=== PATIENT | male | born 1940 | race Caucasian/White ===

== ENCOUNTER 2018-03-18 05:28 | Inpatient (IN) | payer BC, OTHER ==
[2018-03-17 13:59] VITALS: BMI 36.8
[~2018-03-18 05:28] MED LIST: BACITRACIN 50,000 UNITS VIAL TP ONE; GENTAMICIN SO4 80 MG/2 ML VIAL IVPB ONE; HYDROGEN PEROXIDE 473 ML PO ONE
[2018-03-18] MEDS ORDERED: LIDOCAINE 1%/EPI 1:100000 (20 ML MULTI DOSE VIAL) ONE (07:50)
[2018-03-18] MEDS ORDERED: BUPIVACAINE HCL/PF 0.5% (5MG/ML) 10 ML VIAL ONE (07:51)
[2018-03-18] MEDS ORDERED: DEXAMETHASONE SOD PHOSPHATE 4 MG/1 ML VIAL IVPUSH PRN (08:00)
[2018-03-18] MEDS ORDERED: ONDANSETRON 4 MG/2 ML VIAL IVPUSH PRN ×2 (08:00→12:22)
[2018-03-18] MEDS ORDERED: PROMETHAZINE HCL 25 MG/1 ML VIAL IVPB PRN (08:00)
[2018-03-18] MEDS ORDERED: PROPOFOL 20 ML ONE ×2 (08:02)
--- NOTE | 2018-03-18 08:02 | HP ---
History & Physical Update - History History: No Change - Physical Physical: No Change - Assessment Assessment: No Change - Plan Plan: No Change (Full H&P in chart from 03/11/[address] Santiago)
[2018-03-18] MEDS ORDERED: MIDAZOLAM HCL 2 MG/2 ML SINGLE DOSE VIAL ONE (08:03)
[2018-03-18] MEDS ORDERED: ROCURONIUM BROMIDE 50 MG/5 ML VIAL ONE ×2 (08:03→09:45)
[2018-03-18] MEDS ORDERED: LIDOCAINE HCL/PF 2% SDV 5ML VIAL ONE (08:04)
[2018-03-18] MEDS ORDERED: SODIUM CHLORIDE 0.9% P/F 10 ML VIAL IJ ONE ×2 (08:35→08:37)
[2018-03-18] MEDS ORDERED: ceFAZolin SODIUM 1 GM VIAL ONE (08:35)
[2018-03-18] MEDS ORDERED: VANCOMYCIN 1,000 MG VIAL (RESTRICTED TO ID ONLY) ONE ×2 (08:37→09:00)
[2018-03-18] MEDS ORDERED: ceFAZolin SODIUM 1 GM VIAL IVPB ONE (08:37)
[2018-03-18] MEDS ORDERED: ONDANSETRON 4 MG/2 ML VIAL ONE (08:39)
[2018-03-18] MEDS ORDERED: DEXAMETHASONE SOD PHOSPHATE 4 MG/1 ML VIAL ONE (08:39)
[2018-03-18] MEDS ORDERED: VANCOMYCIN 1,000 MG VIAL (RESTRICTED TO ID ONLY) IVPB ONE ×2 (08:39→11:26)
[2018-03-18] MEDS ORDERED: LIDOCAINE 1%/EPI 1:100000 (50 ML MULTI DOSE VIAL) NR ONE (08:53)
[2018-03-18] MEDS ORDERED: THROMBIN (BOVINE) 5,000 UNIT VIAL TP ONE (09:15)
[2018-03-18] MEDS ORDERED: GELATIN, ABSORBABLE 12-7MM EACH SPONGE TP ONE (09:15)
[2018-03-18] MEDS ORDERED: GLYCOPYRROLATE 0.2 MG/1 ML VIAL ONE ×2 (09:18→11:31)
[2018-03-18] MEDS ORDERED: BUPIVACAINE LIPOSOME/PF (EXPAREL) 266 MG/20 ML VIAL NR ONE ×2 (10:00→11:38)
[2018-03-18] MEDS ORDERED: HYDROGEN PEROXIDE 473 ML PO ONE (10:15)
[2018-03-18] MEDS ORDERED: BUPIVACAINE HCL/PF 0.25% (2.5MG/ML) 10 ML VIAL ONE (10:18)
[2018-03-18] MEDS ORDERED: BACITRACIN 50,000 UNITS VIAL TP ONE (11:26)
[2018-03-18] MEDS ORDERED: NEOSTIGMINE METHYLSULFATE 0.5 MG/1 ML - 10 ML MDV ONE (11:31)
[2018-03-18] MEDS ORDERED: BUPIVACAINE HCL/PF 0.25% (2.5MG/ML) 10 ML VIAL IJ ONE (11:38)
[2018-03-18] MEDS ORDERED: diphenhydrAMINE HCL 25 MG CAPSULE (FP) PO PRN (12:22)
[2018-03-18] MEDS ORDERED: oxyCODONE HCL 5 MG TABLET PO PRN ×2 (12:22)
[2018-03-18] MEDS ORDERED: morphine CARPU-JECT 4 MG/1 ML DISP.SYRIN IVPUSH PRN (12:22)
[2018-03-18] MEDS ORDERED: HYDROmorphone *PCA* 10MG/50ML DISP.SYRIN PCA ONE (12:24)
[2018-03-18] MEDS: HYDROmorphone *PCA* 10MG/50ML DISP.SYRIN PCA SCH (12:25)
--- NOTE | 2018-03-18 13:27 | OP ---
Operative Note - Note: Operative Date: 03/18/18 Pre-Operative Diagnosis: L 4/5 disc herniation, stenosis and instability Operation: L4-5 laminectomies with interbody cage and posterior lateral fusion using pedicle screws. Surgeon: Trino Aguila Records Clerk: Javid Chew Anesthesiologist/SPECIAL EDUCATION TEACHER: Doron Null Anesthesia: General Estimated Blood Loss (mls): 300 Fluid Volume Replaced (mls): 2,100 Operative Report Dictated: Yes
--- NOTE | 2018-03-18 13:41 | SURG ---
Surgery Ux Interaction Designer Note Ux Interaction Designer: Javid Chew PA-C Date of Service: 03/18/18 Diagnosis: L 4/5 disc herniation, stenosis and instability Procedure: L4-5 laminectomies with interbody cage and posterior lateral fusion using pedicle screws. I was present for the entirety of the operative procedure. For further detail, please refer to operative report. Visit type - Case Type Case Type: Scheduled - Emergency Emergency Visit: No - New patient This patient is new to me today: Yes Date on this admission: 03/18/18
--- NOTE | 2018-03-18 15:32 | HP ---
Admitting History and Physical - Admission Chief Complaint: 77 y.o M underwent today L4-L5 laminectomies, with intervertebral cage and lateral fusion under general unesthesia. Admitted to for post-op management. History of Present Illness: HTN HLD CVD. History of CVA. DM type 2 Polyneuropathy L4-L5 disc herniation, stenosis and spondilolisthesis and instability. Asthma. Chronic cough. Renal cysts History Source: Patient, Medical Record - Past Medical History DIRECTOR OF PAYROLL: Yes: CVA, Peripheral Neuropathy. No: Seizure Cardiovascular: Yes: HTN, Hyperlipdemia. No: AFIB, Aortic Insufficiency, Aortic Stenosis, CHF, [place], Pulmonary Hypertension Pulmonary: Yes: Asthma. No: O2 Dependent Gastrointestinal: Yes: Constipation Hepatobiliary: No: Cholelithiasis, Cholecystitis, Choledocholithiasis Renal/: Yes: BPH, Other (cyst) Heme/Onc: No: Anemia, B12 Deficiency, Bleeding Disorder, Cancer, Current Chemotherapy, Current Radiation Therapy, Hemochromatosis, Hypercoaguable State, Myeloproliferative Synd, Sickle Cell Disease, Sickle Cell Trait, Thrombocytopenia, Other Infectious Disease: No: AIDS, C-Diff, Herpes Zoster, HIV, MRSA, STD's, Tuberculosis, VREF, Other Psych: No: Addictions, Anxiety, Bipolar, Depression, Panic, Psychosis, Schizophrenia, Other Musculoskeletal: Yes: Chronic low back pain. No: Bursitis, Hemiparesis, Hemiplegia, Osteoarthritis, Paraplegia, Other Endocrine: Yes: Diabetes Mellitus - Smoking History Smoking history: Former smoker Have you smoked in the past 12 months: No If you are a former smoker, when did you quit?: 30YRS AGO - Alcohol/Substance Use Hx Alcohol Use: No Home Medications - Allergies Allergies/Adverse Reactions: Allergies Allergy/AdvReac Type Severity Reaction Status Date / Time No Known Drug Allergies Allergy Verified 03/18/18 06:39 SEASONAL Allergy Mild Cough Uncoded 03/18/18 06:39 - Home Medications Home Medications: Ambulatory Orders Ascorbic Acid [Vitamin C] 1,000 mg PO DAILY 08/10/12 Dutasteride/Tamsulosin HCl [Vilma 0.5-0.4 mg Capsule] 1 each PO HS 08/10/12 Gabapentin [Neurontin -] 300 mg PO BID 08/10/12 Multivit-Min/FA/Lycopen/Lutein [Centrum Silver Ultra Men's Tab] 1 tab PO DAILY 08/10/12 Simvastatin [Zocor] 80 mg PO DAILY 08/10/12 Aspirin [Aspirin EC] 325 mg PO DAILY 08/11/12 Wai/D3/Mag11/Zinc/Oxygen Tank Filler/Emir/Bor [Caltrate 600+D Plus Tablet] 1 each PO DAILY 03/23 Nebivolol [Bystolic -] 5 mg PO HS 03/17/18 Olmesartan Medoxomil 40 mg PO DAILY 03/17/18 Family Disease History - Family Disease History Family History: Unable to Obtain Review of Systems - Review of Systems Constitutional: denies: Chills, Diaphoresis Eyes: denies: Blind Spots, Blurred Vision HENT: denies: Difficult Swallowing, Ear Discharge Neck: denies: Decreased ROM, Lumps Cardiovascular: denies: Chest Pain, Palpitations, Shortness of Breath Respiratory: denies: Cough, Exercise Intolerance Gastrointestinal: denies: Abdominal Pain, Bloating Genitourinary: denies: Burning, Discharge Musculoskeletal: reports: Back Pain. denies: Muscle Pain, Muscle Cramps Integumentary: reports: No Symptoms Neurological: reports: No Symptoms Endocrine: reports: No Symptoms Hematology/Lymphatic: reports: No Symptoms Psychiatric: reports: No Symptoms Physical Examination Vital Signs: Vital Signs Temperature 98.7 F 03/18/18 12:12 Pulse Rate 62 03/18/18 13:40 Respiratory Rate 16 03/18/18 13:40 Blood Pressure 132/51 L 03/18/18 13:40 O2 Sat by Pulse Oximetry (%) 99 03/18/18 13:40 Constitutional: Yes: Mild Distress (pain controlled with IV TUCKPOINTER CLEANER CAULKER) Eyes: Yes: Conjunctiva Clear, EOM Intact HENT: Yes: Atraumatic, Normocephalic. No: Drooling Neck: Yes: Supple, Trachea Midline Cardiovascular: Yes: Regular Rate and Rhythm. No: Bradycardia, Tachycardia Respiratory: Yes: Regular, CTA Bilaterally Gastrointestinal: Yes: Soft, Abdomen, Obese. No: Ascites, Distention ...Rectal Exam: Yes: Deferred Renal/: Yes: Dhillon Present Musculoskeletal: Yes: WNL Extremities: No: Amputation, Calf Tenderness, Cold, Cyanosis Edema: No Peripheral Pulses WNL: No Integumentary: Yes: WNL Neurological: Yes: Alert, Oriented, Cran Nerves II-XII Intact. No: Aphasia, Asterixis, Dysarthria, Facial Droop, Lethargy, Loss of Sensation, Seizure, Tingling, Tremors, Unresponsive Psychiatric: Yes: WNL Labs: Laboratory Results - last 24 hr 03/18/18 03/18/18 06:20 07:20 Blood Type O NEGATIVE O NEGATIVE Antibody Screen Negative Problem List - Problems (1) Back pain at L4-L5 level Assessment/Plan: Continue Dilaudid TUCKPOINTER CLEANER CAULKER, Surgical post-op management Code(s): M54.5 - LOW BACK PAIN (2) HTN (hypertension) Assessment/Plan: Follow BP and re-start BP meds when BP stable. Would keep SBP< 140 mm. Hg. Code(s): I10 - ESSENTIAL (PRIMARY) HYPERTENSION Qualifiers: Hypertension type: essential hypertension Qualified Code(s): I10 - Essential (primary) hypertension (3) CVD (cardiovascular disease) Assessment/Plan: Hold ASA , Zocor to restart. Code(s): I25.10 - ATHSCL HEART DISEASE OF [place] CORONARY ARTERY W/O ANG PCTRS (4) Asthma Assessment/Plan: Duonebs TID Code(s): J45.909 - UNSPECIFIED ASTHMA, UNCOMPLICATED Qualifiers: Asthma severity: mild Asthma persistence: intermittent
[2018-03-18] MEDS ORDERED: ALBUTEROL SO4 2.5/IPRATROPIUM 0.5 INH SOL 3 ML VIAL.NEB. NEB PRN (15:43)
[2018-03-18] MEDS: DOCUSATE SODIUM 100 MG CAPSULE (FP) PO SCH ×2 (17:49→23:06)
[2018-03-18] MEDS: HEPARIN NA (PORCINE) 5,000 UNITS/ML 1ML VIAL SQ SCH ×2 (17:50→20:11)
[2018-03-18] MEDS: LACTATED RINGERS SOLUTION 1,000 ML/1,000 ML INFUS.BAG IV SCH (17:51)
[2018-03-18] MEDS: LACTATED RINGERS SOLUTION 1,000 ML IV SCH ×2 (17:51→23:05)
[2018-03-18] MEDS: CEFAZOLIN 1 GM/D5W 1 GM/50 ML BAG IVPB SCH (20:03)
[2018-03-18] MEDS: GABAPENTIN 100 MG CAPSULE (FP) PO SCH (23:06)
[2018-03-18] MEDS: ATORVASTATIN CA 40 MG TABLET (FP) PO SCH (23:06)
[2018-03-18] MEDS: POLYETHYLENE GLYCOL 3350 119 GM BTL PO SCH (23:06)
[2018-03-18] MEDS: DUTASTERIDE 0.5 MG CAP (FP) PO SCH (23:11)
[2018-03-18] MEDS: NEBIVOLOL 5 MG TABLET (FP) PO SCH (23:26)
[2018-03-19] MEDS: CEFAZOLIN 1 GM/D5W 1 GM/50 ML BAG IVPB SCH ×2 (02:05→10:17)
[2018-03-19] MEDS: DOCUSATE SODIUM 100 MG CAPSULE (FP) PO SCH ×3 (06:01→21:14)
[2018-03-19] MEDS: HEPARIN NA (PORCINE) 5,000 UNITS/ML 1ML VIAL SQ SCH ×3 (06:02→21:14)
[2018-03-19 07:33] LABS: HEMATOCRIT 31.5 % (35.4-49); MEAN CELL VOLUME 85.7 fl (80-96); MEAN PLT VOLUME 8.6 fl (7.5-11.1); PLATELET COUNT 167 K/MM3 (134-434); RBC 3.68 M/mm3 (4.00-5.60); RDW 14.1 % (11.9-15.9); WHITE BLOOD COUNT 9.5 K/mm3 (4.0-10.0)
[2018-03-19 08:17] LABS: ANION GAP 6 MMOL/L (8-16); BLOOD UREA NITROGEN 21 mg/dL (7-18); CHLORIDE 107 mmol/L (98-107); CO2 27 mmol/L (21-32); CREATININE 0.9 mg/dL (0.55-1.3); GLUCOSE,RANDOM 114 mg/dL (74-106); POTASSIUM 4.3 mmol/L (3.5-5.1); SODIUM 140 mmol/L (136-145)
--- NOTE | 2018-03-19 08:29 | PN ---
Progress Note (short form) - Note Progress Note: POD #1 Alert. Sitting up in bed. About to begin his breakfast. Doing well. C/o mild incisional tenderness. Has a dilaudid SPACE ENGINEER (barely using it). Hasn't been OOB yet. Denies n/v/f/c, CP, palpiations, SOB, numbness/tingling or weakness to his LE. Last Vital Signs Temp Pulse Resp BP Pulse Ox 97.9 F 53 L 18 135/61 95 03/19/18 06:00 03/19/18 06:00 03/19/18 06:00 18 06:00 03/18/18 21:00 CBC, BMP 03/19/18 06:00 03/19/18 06:00 OUTPUT 03/18/18 03/18/18 03/19/18 19:07 22:39 06:00 СВЕТЛАНА 5 120 120 Desai 900 600 Gen: alert. nad Back: Lumbar dressing with saturated blood(old). Dressing [place], wound edges approximated well with liberty & dermabond. СВЕТЛАНА drain on bulb suction ( serosanguinous) Neuro: GMNVI bilat Problem List - Problems (1) Back pain at L4-L5 level Assessment/Plan: POD #1 s/p L4-5 laminectomies with interbody cage and posterior lateral fusion using pedicle screws. SPACE ENGINEER dc'd by Barrie PO Pain management ordered OOB with PT Once OOB can dc desai and begin trial of void Dressing changed on round Cont to monitor and record СВЕТЛАНА output ABD binder ordered Medical management Incentive spirometer Above plan discussed with Dr. Aguila and agrees Code(s): M54.5 - LOW BACK PAIN (2) HTN (hypertension) Code(s): I10 - ESSENTIAL (PRIMARY) HYPERTENSION Qualifiers: Hypertension type: essential hypertension Qualified Code(s): I10 - Essential (primary) hypertension
--- NOTE | 2018-03-19 08:52 | PN ---
Progress Note (short form) - Note Progress Note: Post op day#1.S/P L4-L5 Decompression with fusion and interbody cage placement under GA uneventful.Patient stable and c/o pain score of 3-4/10 on Dilaudid TUB RIDER but is not using it as much.Will Dc TUB RIDER and put patient on po pain medication.No any anesthesia related problem.Patient DC from the anesthesia care.
--- NOTE | 2018-03-19 09:09 | PN ---
Progress Note, Physician Chief Complaint: DAY 1 post op Pain is well controlled. History of Present Illness: HTN HLD CVD. History of CVA. DM type 2 Polyneuropathy L4-L5 disc herniation, stenosis and spondilolisthesis and instability. Asthma. Chronic cough. Renal cysts - Current Medication List Current Medications: Active Medications Albuterol/Ipratropium (Duoneb -) 1 amp NEB Q6H PRN PRN Reason: SHORTNESS OF BREATH Aspirin (Ecotrin -) 325 mg PO DAILY [facility] Atorvastatin Calcium (Lipitor -) 40 mg PO [facility] Last Admin: 03/18/18 23:06 Dose: 40 mg Calcium Carbonate/Cholecalciferol (Os-Wai 500+D -) 1 tab PO DAILY [facility] Dexamethasone Sodium Phosphate (Decadron Injection -) 4 mg IVPUSH ONCE PRN PRN Reason: NAUSEA AND/OR VOMITING Diphenhydramine HCl (Benadryl Injection -) 12.5 mg IVPUSH ONCE PRN PRN Reason: FOR ITCHING Diphenhydramine HCl (Benadryl -) 25 mg PO Q6H PRN PRN Reason: FOR ITCHING Docusate Sodium (Colace -) 100 mg PO TID [facility] Last Admin: 03/19/18 06:01 Dose: 100 mg Dutasteride (Avodart -) 0.5 mg PO [facility] Last Admin: 03/18/18 23:11 Dose: 0.5 mg Fentanyl (Sublimaze Injection -) 50 mcg IVPUSH [id number] PRN PRN Reason: PAIN-PACU ORDER X 4 DOSES ONLY Ferrous Sulfate (Feosol -) 325 mg PO DAILY [facility] Folic Acid (Folic Acid -) 1 mg PO DAILY [facility] Gabapentin (Neurontin -) 300 mg PO BID [facility] Last Admin: 03/18/18 23:06 Dose: 300 mg Heparin Sodium (Porcine) (Heparin -) 5,000 unit SQ TID [facility] Last Admin: 03/19/18 06:02 Dose: 5,000 unit Lactated Ringer's (Lactated Ringers Solution) 1,000 mls @ 125 mls/hr IV ASDIR [facility] Last Admin: 03/18/18 23:05 Dose: 125 mls/hr Cefazolin Sodium (Ancef 1 Gm Premixed Ivpb -) 1 gm in 50 mls @ 100 mls/hr IVPB Q8H-IV [facility] Stop: 03/19/18 17:59 Last Admin: 03/19/18 02:05 Dose: 100 mls/hr Lactated Ringer's (Lactated Ringers Solution) 1,000 ml in 1,000 mls @ 125 mls/ hr IV ASDIR [facility] Last Admin: 03/18/18 17:51 Dose: Not Given Morphine Sulfate (Morphine Injection -) 4 mg IVPUSH Q4H PRN PRN Reason: PAIN LEVEL 7 - 10 Nebivolol (Bystolic -) 5 mg PO HS [facility] Last Admin: 03/18/18 23:26 Dose: 5 mg Ondansetron HCl (Zofran Injection) 4 mg IVPUSH Q4H PRN PRN Reason: NAUSEA AND/OR VOMITING Ondansetron HCl (Zofran Injection) 4 mg IVPUSH Q6H PRN PRN Reason: NAUSEA Oxycodone HCl (Roxicodone -) 5 mg PO Q4H PRN PRN Reason: PAIN LEVEL 1-5 Oxycodone HCl (Roxicodone -) 10 mg PO Q4H PRN PRN Reason: PAIN LEVEL 6-10 Polyethylene Glycol (Miralax (For Daily Use) -) 17 gm PO BID [facility] Last Admin: 03/18/18 23:06 Dose: 17 gm Promethazine HCl (Phenergan Injection -) 12.5 mg IVPB Q6H PRN PRN Reason: NAUSEA AND/OR VOMITING Tamsulosin HCl (Flomax -) 0.4 mg PO DAILY@0830 [facility] - Objective Vital Signs: Vital Signs Temperature 97.9 F 03/19/18 06:00 Pulse Rate 53 L 03/19/18 06:00 Respiratory Rate 18 03/19/18 06:00 Blood Pressure 135/61 03/19/18 06:00 O2 Sat by Pulse Oximetry (%) 95 03/18/18 21:00 Constitutional: Yes: Calm, Mild Distress Eyes: Yes: Conjunctiva Clear, EOM Intact HENT: Yes: Atraumatic, Normocephalic. No: Drooling, Epistaxis Neck: Yes: Supple, Trachea Midline Cardiovascular: Yes: Regular Rate and Rhythm, S1, S2. No: Bradycardia, Tachycardia Respiratory: Yes: Regular, CTA Bilaterally Gastrointestinal: Yes: Normal Bowel Sounds, Soft, Abdomen, Obese ...Rectal Exam: Yes: Deferred Genitourinary: Yes: Dhillon Present. No: Anuria Breast(s): Yes: WNL Musculoskeletal: Yes: WNL Extremities: No: Amputation Edema: Yes Edema: LLE: Trace, RLE: Trace Peripheral Pulses WNL: No Wound/Incision: Yes: Other (drain post op) ...Motor Strength: WNL Psychiatric: Yes: WNL Labs: CBC, BMP 03/19/18 06:00 03/19/18 06:00 Problem List - Problems (1) Back pain at L4-L5 level Assessment/Plan: Pain management D/c Drain and ABX as per surgery Surgical post-op management Code(s): M54.5 - LOW BACK PAIN (2) HTN (hypertension) Assessment/Plan: Follow BP and re-start BP meds when BP stable. Would keep SBP< 140 mm. Hg. Code(s): I10 - ESSENTIAL (PRIMARY) HYPERTENSION Qualifiers: Hypertension type: essential hypertension Qualified Code(s): I10 - Essential (primary) hypertension (3) CVD (cardiovascular disease) Assessment/Plan: Hold ASA , Zocor to restart. Code(s): I25.10 - ATHSCL HEART DISEASE OF [place] CORONARY ARTERY W/O ANG PCTRS (4) Asthma Assessment/Plan: Duonebs TID Code(s): J45.909 - UNSPECIFIED ASTHMA, UNCOMPLICATED Qualifiers: Asthma severity: mild Asthma persistence: intermittent
[2018-03-19] MEDS ORDERED: VALSARTAN 160 MG TABLET (UD) PO SCH (10:00)
[2018-03-19] MEDS ORDERED: PT OWN MED DRAWER 7, Y5N ONE ×2 (10:04→20:40)
[2018-03-19] MEDS: ASPIRIN 325 MG ENTERIC COATED TABLET (FP) PO SCH (10:10)
[2018-03-19] MEDS: FOLIC ACID 1 MG TABLET (FP) PO SCH (10:10)
[2018-03-19] MEDS: TAMSULOSIN HCL 0.4 MG CAP PO SCH (10:10)
[2018-03-19] MEDS: FERROUS SO4 325 MG TABLET (FP) PO SCH (10:10)
[2018-03-19] MEDS: POLYETHYLENE GLYCOL 3350 119 GM BTL PO SCH ×2 (10:11→21:19)
[2018-03-19] MEDS: CALCIUM 500MG/VIT-D 200 UNITS COMBO TABLET (FP) PO SCH (10:11)
[2018-03-19] MEDS: GABAPENTIN 100 MG CAPSULE (FP) PO SCH ×2 (10:11→21:10)
[2018-03-19] MEDS: LACTATED RINGERS SOLUTION 1,000 ML/1,000 ML INFUS.BAG IV SCH (13:42)
[2018-03-19] MEDS: LACTATED RINGERS SOLUTION 1,000 ML IV SCH (13:42)
[2018-03-19] MEDS: ATORVASTATIN CA 40 MG TABLET (FP) PO SCH (21:13)
[2018-03-19] MEDS: NEBIVOLOL 5 MG TABLET (FP) PO SCH (21:13)
[2018-03-19] MEDS: DUTASTERIDE 0.5 MG CAP (FP) PO SCH (21:14)
[2018-03-20] MEDS: DOCUSATE SODIUM 100 MG CAPSULE (FP) PO SCH ×3 (05:55→22:36)
[2018-03-20] MEDS: HEPARIN NA (PORCINE) 5,000 UNITS/ML 1ML VIAL SQ SCH ×3 (05:55→22:29)
--- NOTE | 2018-03-20 09:13 | PN ---
Physical Exam: SUBJECTIVE: Patient seen and examined at the bedside. reports feeling "sore" but pain well controlled. sitting up and ambulating eager to go home Thursday OBJECTIVE: symphony coverage for Dr. Santiago who returns on 03/22/18 POD#2 Patient denies any pain, states pain is well controlled passing gas, no bm yet urology consulted for retention, has desai with clear sharri urine low grade temps overnight Vital Signs Period Temp Pulse Resp BP Sys/Constantino Pulse Ox Last 24 Hr 98.5 F-100.9 F 57-84 19-20 115-147/53-67 95 GENERAL: The patient is awake, alert, and fully oriented, in no acute distress. HEAD: Normal with no signs of trauma. EYES: PERRL, extraocular movements intact, sclera anicteric, conjunctiva clear. No ptosis. ENT: Ears normal, nares patent, oropharynx clear without exudates, moist mucous membranes. NECK: Trachea midline, full range of motion, supple. LUNGS: Breath sounds equal, clear to auscultation bilaterally HEART: Regular rate and rhythm ABDOMEN: Soft, nontender, nondistended, normoactive bowel sounds EXTREMITIES: no edema. NEUROLOGICAL: Normal speech, gait not observed. PSYCH: Normal mood, normal affect. SKIN: Warm, dry, normal turgor, no rashes or lesions noted Laboratory Results - last 24 hr 03/19/18 03/19/18 11:36 16:34 POC Glucometer 120 109 Active Medications Generic Name Dose Route Start Last Admin Trade Name Freq PRN Reason Stop Dose Admin Albuterol/Ipratropium 1 amp 03/18/18 15:43 Duoneb - NEB Q6H PRN SHORTNESS OF BREATH Aspirin 325 mg 03/19/18 10:00 03/19/18 10:10 Ecotrin - PO 325 mg DAILY CARL Administration Atorvastatin Calcium 40 mg 03/18/18 22:00 03/19/18 21:13 Lipitor - PO 40 mg HS CARL Administration Calcium Carbonate/Cholecalciferol 1 tab 03/19/18 10:00 03/19/18 10:11 Os-Wai 500+D - PO 1 tab DAILY [facility] Administration Dexamethasone Sodium Phosphate 4 mg 03/18/18 08:00 Decadron Injection - IVPUSH ONCE PRN NAUSEA AND/OR VOMITING Diphenhydramine HCl 12.5 mg 03/18/18 08:00 Benadryl Injection - IVPUSH ONCE PRN FOR ITCHING Diphenhydramine HCl 25 mg 03/18/18 12:22 Benadryl - PO Q6H PRN FOR ITCHING Docusate Sodium 100 mg 03/18/18 14:00 03/20/18 05:55 Colace - PO 100 mg TID CARL Administration Dutasteride 0.5 mg 03/18/18 22:00 03/19/18 21:14 Avodart - PO 0.5 mg HS [facility]L Administration Fentanyl 50 mcg 03/18/18 08:00 Sublimaze Injection - IVPUSH [id number] PRN PAIN-PACU ORDER X 4 DOSES ONLY Ferrous Sulfate 325 mg 03/19/18 10:00 03/19/18 10:10 Feosol - PO 325 mg DAILY [facility] Administration Folic Acid 1 mg 03/19/18 10:00 03/19/18 10:10 Folic Acid - PO 1 mg DAILY [facility] Administration Gabapentin 300 mg 03/18/18 22:00 03/19/18 21:10 Neurontin - PO 300 mg BID [facility] Administration Heparin Sodium (Porcine) 5,000 unit 03/19/18 06:00 03/20/18 05:55 Heparin - SQ 5,000 unit TID [facility] Administration Lactated Ringer's 1,000 mls @ 125 mls/hr 03/18/18 08:00 03/19/18 13:42 Lactated Ringers Solution IV Not Given ASDIR [facility] Lactated Ringer's 1,000 ml in 1,000 mls @ 125 mls/hr 03/18/18 12:30 03/19/18 13:42 Lactated Ringers Solution IV Not Given ASDIR [facility] Morphine Sulfate 4 mg 03/18/18 12:22 Morphine Injection - IVPUSH Q4H PRN PAIN LEVEL 7 - 10 Nebivolol 5 mg 03/18/18 22:00 03/19/18 21:13 Bystolic - PO 5 mg HS [facility]L Administration Ondansetron HCl 4 mg 03/18/18 08:00 Zofran Injection IVPUSH Q4H PRN NAUSEA AND/OR VOMITING Ondansetron HCl 4 mg 03/18/18 12:22 Zofran Injection IVPUSH Q6H PRN NAUSEA Oxycodone HCl 5 mg 03/18/18 12:22 Roxicodone - PO Q4H PRN PAIN LEVEL 1-5 Oxycodone HCl 10 mg 03/18/18 12:22 03/19/18 14:11 Roxicodone - PO 10 mg Q4H PRN Administration PAIN LEVEL 6-10 Polyethylene Glycol 17 gm 03/18/18 22:00 03/19/18 21:19 Miralax (For Daily Use) - PO 17 gm BID [facility] Administration Promethazine HCl 12.5 mg 03/18/18 08:00 Phenergan Injection - IVPB Q6H PRN NAUSEA AND/OR VOMITING Tamsulosin HCl 0.4 mg 03/19/18 08:30 03/19/18 10:10 Flomax - PO 0.4 mg DAILY@0830 [facility] Administration ASSESSMENT/PLAN: Patient is a 77 year old male with a significant past medical history of: HTN HLD CVD. History of CVA. DM type 2 Polyneuropathy L4-L5 disc herniation, stenosis and spondilolisthesis and instability. Asthma. Chronic cough. Renal cysts Back surgery: L4-L5 disc herniation, stenosis and spondilolisthesis and instability. Patient is POD#2 s/p L4-L5 laminectomies, with intervertebral cage and lateral fusion under general anaesthesia. TSLO bracelet with ambulation. Pain managed with oxycodone. On a bowel regimen Physical therapy as tolerated Card: Hypertension. stable. On Bystolic. HLD. on lipitor Endocrine: DM. type 2. BGMs. Novolog ss. diabetic diet. : Urine retention desai cathether for retention on flomax 0.4mg daily urology consult Neuro: CVA hx of cva Hold ASA 324mg per pcp note. On statin therapy Pulm: Asthma, stable On duonebs prn fen tolerating po monitor electrolytes diabetic diet prophy on heparin tid bowel regimen physical therapy full code Visit type - Emergency Visit Emergency Visit: Yes ED Registration Date: 03/18/18 Care time: The patient presented to the Emergency Department on the above date and was hospitalized for further evaluation of their emergent condition. - New Patient This patient is new to me today: Yes Date on this admission: 03/20/18 - Critical Care Critical Care patient: No - Discharge Referral Referred to [facility] No
[2018-03-20] MEDS: LACTATED RINGERS SOLUTION 1,000 ML IV SCH (10:38)
[2018-03-20] MEDS: ASPIRIN 325 MG ENTERIC COATED TABLET (FP) PO SCH (10:40)
[2018-03-20] MEDS: GABAPENTIN 100 MG CAPSULE (FP) PO SCH ×2 (10:40→22:28)
[2018-03-20] MEDS: FERROUS SO4 325 MG TABLET (FP) PO SCH (10:40)
[2018-03-20] MEDS: CALCIUM 500MG/VIT-D 200 UNITS COMBO TABLET (FP) PO SCH (10:40)
[2018-03-20] MEDS: FOLIC ACID 1 MG TABLET (FP) PO SCH (10:40)
[2018-03-20] MEDS: TAMSULOSIN HCL 0.4 MG CAP PO SCH (10:42)
[2018-03-20] MEDS: POLYETHYLENE GLYCOL 3350 119 GM BTL PO SCH ×2 (10:43→22:28)
[2018-03-20] MEDS: LACTATED RINGERS SOLUTION 1,000 ML/1,000 ML INFUS.BAG IV SCH (12:34)
[2018-03-20] MEDS: HYDROmorphone *PCA* 10MG/50ML DISP.SYRIN PCA SCH (12:35)
[2018-03-20] MEDS: INSULIN SLIDING SCALE (NOVOLOG) 1 VIAL SQ SCH ×2 (17:47→22:29)
[2018-03-20] MEDS ORDERED: INSULIN (NOVOLOG) ASPART 100 UNITS/ML 10ML VIAL ONE (18:10)
[2018-03-20] MEDS: ATORVASTATIN CA 40 MG TABLET (FP) PO SCH (22:28)
[2018-03-20] MEDS: NEBIVOLOL 5 MG TABLET (FP) PO SCH (22:30)
[2018-03-20] MEDS: DUTASTERIDE 0.5 MG CAP (FP) PO SCH (22:32)
[2018-03-21] MEDS: DOCUSATE SODIUM 100 MG CAPSULE (FP) PO SCH ×3 (06:13→21:15)
[2018-03-21] MEDS: HEPARIN NA (PORCINE) 5,000 UNITS/ML 1ML VIAL SQ SCH ×3 (06:13→21:16)
[2018-03-21] MEDS: INSULIN SLIDING SCALE (NOVOLOG) 1 VIAL SQ SCH ×4 (06:13→22:24)
--- NOTE | 2018-03-21 08:04 | PN ---
Physical Exam: SUBJECTIVE: Patient seen and examined at the bedside. denies pain, denies shortness of breath. verbalizes feeling constipated. OBJECTIVE: symphony coverage for Dr. Santiago who returns on 03/22/18 POD#3 passing gas, no bm yet urology consulted for retention, has desai with clear sharri urine. On Jayln at home. which is a combo pill of flomax and avodart. he is on both avodart and flomax here, but still cannot urinate. Vital Signs Period Temp Pulse Resp BP Sys/Constantino Pulse Ox Last 24 Hr 97.8 F-98.9 F 56-63 18-20 123-146/54-71 GENERAL: The patient is awake, alert, and fully oriented, in no acute distress. HEAD: Normal with no signs of trauma. EYES: PERRL, extraocular movements intact, sclera anicteric, conjunctiva clear. No ptosis. ENT: Ears normal, nares patent, oropharynx clear without exudates, moist mucous membranes. NECK: Trachea midline, full range of motion, supple. LUNGS: Breath sounds equal, clear to auscultation bilaterally HEART: Regular rate and rhythm ABDOMEN: Soft, nontender, nondistended, normoactive bowel sounds EXTREMITIES: no edema. NEUROLOGICAL: Normal speech, gait not observed. PSYCH: Normal mood, normal affect. SKIN: Warm, dry, normal turgor, no rashes or lesions noted Laboratory Results - last 24 hr 03/20/18 03/20/18 03/21/18 17:44 22:25 06:11 POC Glucometer 193 103 120 Active Medications Generic Name Dose Route Start Last Admin Trade Name Frehugo PRN Reason Stop Dose Admin Albuterol/Ipratropium 1 amp 03/18/18 15:43 Duoneb - NEB Q6H PRN SHORTNESS OF BREATH Aspirin 325 mg 03/19/18 10:00 03/20/18 10:40 Ecotrin - PO 325 mg DAILY CARL Administration Atorvastatin Calcium 40 mg 03/18/18 22:00 03/20/18 22:28 Lipitor - PO 40 mg HS CARL Administration Calcium Carbonate/Cholecalciferol 1 tab 03/19/18 10:00 03/20/18 10:40 Os-Wai 500+D - PO 1 tab DAILY [facility] Administration Dexamethasone Sodium Phosphate 4 mg 03/18/18 08:00 Decadron Injection - IVPUSH ONCE PRN NAUSEA AND/OR VOMITING Diphenhydramine HCl 12.5 mg 03/18/18 08:00 Benadryl Injection - IVPUSH ONCE PRN FOR ITCHING Diphenhydramine HCl 25 mg 03/18/18 12:22 Benadryl - PO Q6H PRN FOR ITCHING Docusate Sodium 100 mg 03/18/18 14:00 03/21/18 06:13 Colace - PO 100 mg TID [facility] Administration Dutasteride 0.5 mg 03/21/18 08:30 Avodart - PO DAILY@0830 [facility] Fentanyl 50 mcg 03/18/18 08:00 Sublimaze Injection - IVPUSH [id number] PRN PAIN-PACU ORDER X 4 DOSES ONLY Ferrous Sulfate 325 mg 03/19/18 10:00 03/20/18 10:40 Feosol - PO 325 mg DAILY [facility] Administration Folic Acid 1 mg 03/19/18 10:00 03/20/18 10:40 Folic Acid - PO 1 mg DAILY [facility] Administration Gabapentin 300 mg 03/18/18 22:00 03/20/18 22:28 Neurontin - PO 300 mg BID [facility] Administration Heparin Sodium (Porcine) 5,000 unit 03/19/18 06:00 03/21/18 06:13 Heparin - SQ 5,000 unit TID [facility] Administration Insulin Aspart 1 vial 03/20/18 16:30 03/21/18 06:13 Novolog Vial Sliding Scale - SQ Not Given ACHS [facility] Protocol Nebivolol 5 mg 03/18/18 22:00 03/20/18 22:30 Bystolic - PO 5 mg HS [facility] Administration Ondansetron HCl 4 mg 03/18/18 08:00 Zofran Injection IVPUSH Q4H PRN NAUSEA AND/OR VOMITING Ondansetron HCl 4 mg 03/18/18 12:22 Zofran Injection IVPUSH Q6H PRN NAUSEA Oxycodone HCl 5 mg 03/18/18 12:22 Roxicodone - PO Q4H PRN PAIN LEVEL 1-5 Oxycodone HCl 10 mg 03/18/18 12:22 03/19/18 14:11 Roxicodone - PO 10 mg Q4H PRN Administration PAIN LEVEL 6-10 Polyethylene Glycol 17 gm 03/18/18 22:00 03/20/18 22:28 Miralax (For Daily Use) - PO 17 gm BID [facility] Administration Promethazine HCl 12.5 mg 03/18/18 08:00 Phenergan Injection - IVPB Q6H PRN NAUSEA AND/OR VOMITING Tamsulosin HCl 0.4 mg 03/21/18 08:30 Flomax - PO DAILY@0830 [facility] ASSESSMENT/PLAN: Patient is a 77 year old male with a significant past medical history of: HTN HLD CVD. History of CVA. DM type 2 Polyneuropathy L4-L5 disc herniation, stenosis and spondilolisthesis and instability. Asthma. Chronic cough. Renal cysts Back surgery: L4-L5 disc herniation, stenosis and spondilolisthesis and instability. Patient is POD#3 s/p L4-L5 laminectomies, with intervertebral cage and lateral fusion under general anaesthesia. TSLO bracelet with ambulation. Pain managed with oxycodone. On a bowel regimen, but constipated. will add senna @ hs. pt refusing suppository. Physical therapy as tolerated monitor drain output incentive spirometer Card: Hypertension. stable. On Bystolic. HLD. on lipitor Endocrine: DM. type 2. BGMs. Novolog ss. diabetic diet. GI: Constipation, unspecified On bowel regimen colace tid. mirallax bid. will add senna refusing dulcolax suppository at this time, will add as prn : Urine retention urology consulted for retention, has desai with clear sharri urine. On Jayln at home. which is a combo pill of flomax and avodart. he is on both avodart and flomax here, but still cannot urinate on his own urology consult Neuro: CVA hx of cva Hold ASA 324mg per pcp note. On statin therapy Pulm: Asthma, stable On duonebs prn fen tolerating po monitor electrolytes diabetic diet prophy on heparin tid bowel regimen physical therapy full code Visit type - Emergency Visit Emergency Visit: Yes ED Registration Date: 03/18/18 Care time: The patient presented to the Emergency Department on the above date and was hospitalized for further evaluation of their emergent condition. - New Patient This patient is new to me today: No - Critical Care Critical Care patient: No - Discharge Referral Referred to [facility] Med P.C.: No
[2018-03-21] MEDS ORDERED: SENNOSIDES 8.6MG TABLET (FP) PO PRN (08:22)
[2018-03-21] MEDS ORDERED: BISACODYL 10 MG SUPP.RECT RC PRN (08:26)
[2018-03-21] MEDS ORDERED: PT OWN MED DRAWER 7, Y5N ONE ×2 (08:47→13:22)
[2018-03-21] MEDS: TAMSULOSIN HCL 0.4 MG CAP PO SCH (09:02)
[2018-03-21] MEDS: FOLIC ACID 1 MG TABLET (FP) PO SCH (09:03)
[2018-03-21] MEDS: CALCIUM 500MG/VIT-D 200 UNITS COMBO TABLET (FP) PO SCH (09:03)
[2018-03-21] MEDS: FERROUS SO4 325 MG TABLET (FP) PO SCH (09:03)
[2018-03-21] MEDS: GABAPENTIN 100 MG CAPSULE (FP) PO SCH ×2 (09:03→21:27)
[2018-03-21] MEDS: DUTASTERIDE 0.5 MG CAP (FP) PO SCH (09:03)
[2018-03-21] MEDS: POLYETHYLENE GLYCOL 3350 119 GM BTL PO SCH ×2 (09:04→21:26)
[2018-03-21 09:09] LABS: BASO % 0.4 % (0-2.0); EOS % 2.3 % (0-4.5); HEMATOCRIT 33.4 % (35.4-49); HEMOGLOBIN 11.7 GM/dL (11.7-16.9); LYMPH % 8.5 % (8-40); MCHC 35.1 g/dl (32.0-35.9); MEAN CELL VOLUME 85.3 fl (80-96); MEAN PLT VOLUME 8.5 fl (7.5-11.1); NEUT % 80.8 % (42.8-82.8); PLATELET COUNT 167 K/MM3 (134-434); RBC 3.92 M/mm3 (4.00-5.60); RDW 13.7 % (11.9-15.9); WHITE BLOOD COUNT 7.6 K/mm3 (4.0-10.0)
[2018-03-21 09:27] LABS: ALBUMIN 2.7 g/dl (3.4-5.0); ALK PHOS 58 U/L (45-117); ANION GAP 6 MMOL/L (8-16); BLOOD UREA NITROGEN 16 mg/dL (7-18); CHLORIDE 105 mmol/L (98-107); CO2 27 mmol/L (21-32); CREATININE 0.9 mg/dL (0.55-1.3); GLUCOSE,RANDOM 160 mg/dL (74-106); POTASSIUM 4.1 mmol/L (3.5-5.1); SGOT/AST 26 U/L (15-37); SGPT/ALT 20 U/L (13-61); SODIUM 138 mmol/L (136-145); TOT PROT 5.6 g/dl (6.4-8.2)
[2018-03-21] MEDS: NEBIVOLOL 5 MG TABLET (FP) PO SCH (21:14)
[2018-03-21] MEDS: ATORVASTATIN CA 40 MG TABLET (FP) PO SCH (21:16)
[2018-03-22] MEDS: HEPARIN NA (PORCINE) 5,000 UNITS/ML 1ML VIAL SQ SCH ×3 (05:45→21:50)
[2018-03-22] MEDS: DOCUSATE SODIUM 100 MG CAPSULE (FP) PO SCH ×3 (06:06→21:44)
[2018-03-22] MEDS: INSULIN SLIDING SCALE (NOVOLOG) 1 VIAL SQ SCH ×4 (06:07→21:50)
--- NOTE | 2018-03-22 08:14 | PN ---
Progress Note (short form) - Note Progress Note: POD #4 Alert. Doing well. Went into urinary retention (+ h/o BPH and on Jayln at home) . Urology/Rectschaffen consult appreciated. Continues to get oob and ambulate with rolling walker with physical therapy. Icisional pain managed well with medications as ordered. Denies n/v/f/c, CP, SOB, numbness/tingling to LE bilat. Last Vital Signs Temp Pulse Resp BP Pulse Ox 98.4 F 54 L 20 143/54 L 95 12/17/18 06:20 17/18 06:20 12/17/18 06:20 18 06:20 03/21/18 21:00 CBC, BMP 03/21/18 09:00 03/21/18 09:00 24 HOUR OUTPUT 12/16/18 16/18 03/21/18 03/22/18 06:00 17:35 22:50 06:00 СВЕТЛАНА 25 50 30 Desai 800 700 700 500 Gen: nad Back: liberty intact. no evidence of infection. drain dc'd on rounds LE: soft, nt bilat. strength 5/5 bilat with good dorsi/plantar flexion. : desai to gravity Problem List - Problems (1) Back pain at L4-L5 level Assessment/Plan: POD #4 s/p L4-5 laminectomies with interbody cage and posterior lateral fusion using pedicle screws. СВЕТЛАНА dc'd on rounds. Stop IV ABX Cont oob and ambulate with PT TLSO brace or ABD binder 23/24 hours a day Pain management PRN Trial of void as per Urology Cont Flomax & Proscar (BPH) Code(s): M54.5 - LOW BACK PAIN (2) HTN (hypertension) Code(s): I10 - ESSENTIAL (PRIMARY) HYPERTENSION Qualifiers: Hypertension type: essential hypertension Qualified Code(s): I10 - Essential (primary) hypertension
--- NOTE | 2018-03-22 08:17 | CON.GU ---
Consult Consult Specialty:: Referred by:: Dr. Santiago Reason for Consultation:: urinary retention - History of Present Illness Chief Complaint: urinary retention History of Present Illness: 77 year old male with a history of BPH who is on Vilma was unable to void after spinal surgery. He was experiencing RLE pain prior to the operation. He has a history of peripheral neuropathy - History Source History Provided By: Patient Limitations to Obtaining History: No Limitations - Past Medical History [employer]: Yes: CVA, Peripheral Neuropathy. No: Seizure Cardio/Vascular: Yes: HTN, Hyperlipdemia. No: AFIB, Aortic Insufficiency, Aortic Stenosis, CHF, [place], Pulmonary Hypertension Pulmonary: Yes: Asthma. No: O2 Dependent Gastrointestinal: Yes: Constipation Hepatobiliary: No: Cholelithiasis, Cholecystitis, Choledocholithiasis Renal/: Yes: BPH, Other (cyst) Infectious Disease: No: AIDS, C-Diff, Herpes Zoster, HIV, MRSA, STD's, Tuberculosis, VREF, Other Psych: No: Addictions, Anxiety, Bipolar, Depression, Panic, Psychosis, Schizophrenia, Other Musculoskeletal: Yes: Chronic low back pain. No: Bursitis, Hemiparesis, Hemiplegia, Osteoarthritis, Paraplegia, Other Endocrine: Yes: Diabetes Mellitus - Alcohol/Substance Use Hx Alcohol Use: No - Smoking History Smoking history: Former smoker Have you smoked in the past 12 months: No If you are a former smoker, when did you quit?: 30YRS AGO Home Medications - Allergies Allergies/Adverse Reactions: Allergies Allergy/AdvReac Type Severity Reaction Status Date / Time No Known Drug Allergies Allergy Verified 03/18/18 06:39 SEASONAL Allergy Mild Cough Uncoded 03/18/18 06:39 - Home Medications Home Medications: Ambulatory Orders Ascorbic Acid [Vitamin C] 1,000 mg PO DAILY 08/10/12 Dutasteride/Tamsulosin HCl [Vilma 0.5-0.4 mg Capsule] 1 each PO HS 08/10/12 Gabapentin [Neurontin -] 300 mg PO BID 08/10/12 Multivit-Min/FA/Lycopen/Lutein [Centrum Silver Ultra Men's Tab] 1 tab PO DAILY 08/10/12 Simvastatin [Zocor] 80 mg PO DAILY 08/10/12 Aspirin [Aspirin EC] 325 mg PO DAILY 08/11/12 Wai/D3/Mag11/Zinc/Land Developer/Emir/Bor [Caltrate 600+D Plus Tablet] 1 each PO DAILY 03/23 Nebivolol [Bystolic -] 5 mg PO HS 03/17/18 Olmesartan Medoxomil 40 mg PO DAILY 03/17/18 Review of Systems - Review of Systems Genitourinary: reports: Other (urinary retention) Physical Exam- Vital Signs: Vital Signs Temperature 98.4 F 03/22/18 06:20 Pulse Rate 54 L 03/22/18 06:20 Respiratory Rate 20 03/22/18 06:20 Blood Pressure 143/54 L 03/22/18 06:20 O2 Sat by Pulse Oximetry (%) 95 03/21/18 21:00 Constitutional: Yes: Well Nourished, No Distress, Calm Renal/: Yes: Dhillon Present. No: Bladder Distention, CVA Tenderness - Left, CVA Tenderness - Right, Hematuria, Incontinence Kidneys: No: Flank Pain Left, FLank Pain Right Labs: CBC, BMP 03/21/18 09:00 03/21/18 09:00 Problem List - Problems (1) Benign localized hyperplasia of prostate with urinary obstruction Assessment/Plan: repeat a trial of void today. continue flomax and proscar Code(s): N40.1 - BENIGN PROSTATIC HYPERPLASIA WITH LOWER URINARY TRACT SYMP; N13.8 - OTHER OBSTRUCTIVE AND REFLUX UROPATHY (2) Retention of urine Code(s): R33.9 - RETENTION OF URINE, UNSPECIFIED
--- NOTE | 2018-03-22 08:53 | PN ---
Progress Note, Physician Chief Complaint: СВЕТЛАНА removed , off abx Dhillon removed Discussed with Gu History of Present Illness: HTN HLD CVD. History of CVA. DM type 2 Polyneuropathy L4-L5 disc herniation, stenosis and spondilolisthesis and instability. Asthma. Chronic cough. Renal cysts - Current Medication List Current Medications: Active Medications Albuterol/Ipratropium (Duoneb -) 1 amp NEB Q6H PRN PRN Reason: SHORTNESS OF BREATH Aspirin (Ecotrin -) 325 mg PO DAILY [facility] Last Admin: 03/20/18 10:40 Dose: 325 mg Atorvastatin Calcium (Lipitor -) 40 mg PO HS [facility] Last Admin: 03/21/18 21:16 Dose: 40 mg Bisacodyl (Dulcolax Suppository -) 10 mg RC PRN PRN PRN Reason: CONSTIPATION Calcium Carbonate/Cholecalciferol (Os-Wai 500+D -) 1 tab PO DAILY [facility] Last Admin: 03/21/18 09:03 Dose: 1 tab Dexamethasone Sodium Phosphate (Decadron Injection -) 4 mg IVPUSH ONCE PRN PRN Reason: NAUSEA AND/OR VOMITING Diphenhydramine HCl (Benadryl Injection -) 12.5 mg IVPUSH ONCE PRN PRN Reason: FOR ITCHING Diphenhydramine HCl (Benadryl -) 25 mg PO Q6H PRN PRN Reason: FOR ITCHING Docusate Sodium (Colace -) 100 mg PO TID [facility] Last Admin: 03/22/18 06:06 Dose: Not Given Dutasteride (Avodart -) 0.5 mg PO DAILY@0830 [facility] Last Admin: 03/21/18 09:03 Dose: 0.5 mg Fentanyl (Sublimaze Injection -) 50 mcg IVPUSH [id number] PRN PRN Reason: PAIN-PACU ORDER X 4 DOSES ONLY Ferrous Sulfate (Feosol -) 325 mg PO DAILY [facility] Last Admin: 03/21/18 09:03 Dose: 325 mg Folic Acid (Folic Acid -) 1 mg PO DAILY [facility] Last Admin: 03/21/18 09:03 Dose: 1 mg Gabapentin (Neurontin -) 300 mg PO BID [facility] Heparin Sodium (Porcine) (Heparin -) 5,000 unit SQ TID [facility] Last Admin: 03/22/18 05:45 Dose: 5,000 unit Insulin Aspart (Novolog Vial Sliding Scale -) [address] vial [address]Q [facility]; Protocol Last Admin: 03/22/18 06:07 Dose: Not Given Nebivolol (Bystolic -) 5 mg PO HS [facility] Last Admin: 03/21/18 21:14 Dose: 5 mg Ondansetron HCl (Zofran Injection) 4 mg IVPUSH Q4H PRN PRN Reason: NAUSEA AND/OR VOMITING Ondansetron HCl (Zofran Injection) 4 mg IVPUSH Q6H PRN PRN Reason: NAUSEA Oxycodone HCl (Roxicodone -) 5 mg PO Q4H PRN PRN Reason: PAIN LEVEL 1-5 Last Admin: 03/21/18 21:23 Dose: 5 mg Oxycodone HCl (Roxicodone -) 10 mg PO Q4H PRN PRN Reason: PAIN LEVEL 6-10 Last Admin: 03/19/18 14:11 Dose: 10 mg Polyethylene Glycol (Miralax (For Daily Use) -) 17 gm PO BID [facility] Last Admin: 03/21/18 21:26 Dose: Not Given Promethazine HCl (Phenergan Injection -) 12.5 mg IVPB Q6H PRN PRN Reason: NAUSEA AND/OR VOMITING Senna (Senna -) 2 tab PO HS PRN PRN Reason: CONSTIPATION Tamsulosin HCl (Flomax -) 0.4 mg PO DAILY@0830 [facility] Last Admin: 03/21/18 09:02 Dose: 0.4 mg - Objective Vital Signs: Vital Signs Temperature 98.4 F 03/22/18 06:20 Pulse Rate 54 L 03/22/18 06:20 Respiratory Rate 20 03/22/18 06:20 Blood Pressure 143/54 L 03/22/18 06:20 O2 Sat by Pulse Oximetry (%) 95 03/21/18 21:00 Constitutional: Yes: Calm, Mild Distress Eyes: Yes: Conjunctiva Clear, EOM Intact HENT: Yes: Atraumatic, Normocephalic Neck: Yes: Supple, Trachea Midline Cardiovascular: Yes: Regular Rate and Rhythm Respiratory: Yes: Regular, CTA Bilaterally Gastrointestinal: Yes: Normal Bowel Sounds, Soft ...Rectal Exam: Yes: Deferred Genitourinary: Yes: Other (Dhillon removed.). No: Anuria, Bladder Distention Breast(s): Yes: WNL Extremities: Yes: WNL Edema: No Wound/Incision: Yes: Clean/Dry Neurological: Yes: WNL Psychiatric: Yes: WNL Labs: CBC, BMP 03/21/18 09:00 03/21/18 09:00 Problem List - Problems (1) Back pain at L4-L5 level Assessment/Plan: Pain management D/c Drain and ABX as per surgery Surgical post-op management Code(s): M54.5 - LOW BACK PAIN (2) HTN (hypertension) Assessment/Plan: Follow BP and re-start BP meds when BP stable. Would keep SBP< 140 mm. Hg. Code(s): I10 - ESSENTIAL (PRIMARY) HYPERTENSION Qualifiers: Hypertension type: essential hypertension Qualified Code(s): I10 - Essential (primary) hypertension (3) CVD (cardiovascular disease) Assessment/Plan: Hold ASA , Zocor to restart. Code(s): I25.10 - ATHSCL HEART DISEASE OF [place] CORONARY ARTERY W/O ANG PCTRS (4) Asthma Assessment/Plan: Duonebs TID Code(s): J45.909 - UNSPECIFIED ASTHMA, UNCOMPLICATED Qualifiers: Asthma severity: mild Asthma persistence: intermittent (5) Benign localized hyperplasia of prostate with urinary obstruction Code(s): N40.1 - BENIGN PROSTATIC HYPERPLASIA WITH LOWER URINARY TRACT SYMP; N13.8 - OTHER OBSTRUCTIVE AND REFLUX UROPATHY (6) Retention of urine Assessment/Plan: Voiding trial Code(s): R33.9 - RETENTION OF URINE, UNSPECIFIED
[2018-03-22] MEDS ORDERED: PT OWN MED DRAWER 7, Y5N ONE (11:08)
[2018-03-22] MEDS: LOSARTAN POTASSIUM 50 MG TABLET (FP) PO SCH (11:18)
[2018-03-22] MEDS: TAMSULOSIN HCL 0.4 MG CAP PO SCH (11:18)
[2018-03-22] MEDS: FOLIC ACID 1 MG TABLET (FP) PO SCH (11:18)
[2018-03-22] MEDS: DUTASTERIDE 0.5 MG CAP (FP) PO SCH (11:18)
[2018-03-22] MEDS: FERROUS SO4 325 MG TABLET (FP) PO SCH (11:18)
[2018-03-22] MEDS: CALCIUM 500MG/VIT-D 200 UNITS COMBO TABLET (FP) PO SCH (11:19)
[2018-03-22] MEDS: GABAPENTIN 300 MG CAPSULE (FP) PO SCH ×2 (11:19→21:44)
[2018-03-22] MEDS: POLYETHYLENE GLYCOL 3350 119 GM BTL PO SCH ×2 (11:21→21:52)
[2018-03-22] MEDS: ATORVASTATIN CA 40 MG TABLET (FP) PO SCH (21:44)
[2018-03-22] MEDS: NEBIVOLOL 5 MG TABLET (FP) PO SCH (21:44)
[2018-03-23] MEDS: HEPARIN NA (PORCINE) 5,000 UNITS/ML 1ML VIAL SQ SCH (05:24)
[2018-03-23] MEDS: DOCUSATE SODIUM 100 MG CAPSULE (FP) PO SCH (05:24)
[2018-03-23] MEDS: INSULIN SLIDING SCALE (NOVOLOG) 1 VIAL SQ SCH (06:12)
--- NOTE | 2018-03-23 07:41 | PN ---
Progress Note (short form) - Note Progress Note: [facility] *LIVE* Progress Note (short form) Patient Name: GONZALEZ DOSS Date of : 1940 Patient Status: Inpatient Attending Provider: Dada Santiago Date: 03/22/18 08:14 Initialization Date: 03/22/18 08:14 Progress Note (short form) - Note Progress Note: POD #5 Alert. Doing well. C/o mild incisional tenderness. Adequate pain control via PRN PO meds. Continues to ambulate unassisted. wearing his TLSO brace as instructed. Patient had issues w/ urinary retention and followed by Dr. Carrillo who continued patient's Flomax and Proscar. His desai cath was removed yesterday and trial of void began...has since voided without difficulty. Overall, patient very happy with results of surgery. Denies n/v/f/c, CP, SOB, numbness/tingling/weakness to LE bilat. Last Vital Signs Temp Pulse Resp BP Pulse Ox 99.5 F 58 L 20 115/45 L 97 1218/18 06:50 03/23/18 06:50 03/23/18 06:50 18 06:50 03/22/18 21:00 Gen: nad Back: liberty intact. no evidence of infection. LE: soft, nt bilat. MOTOR: GMNVI bilat 5/5 : desai to gravity Problem List - Problems (1) Back pain at L4-L5 level Assessment/Plan: POD #5 s/p L4-5 laminectomies with interbody cage and posterior lateral fusion using pedicle screws. Patient states he wants to go home today (staying at his daughters home). Cont oob and ambulate with PT TLSO brace or ABD binder 23/24 hours a day Pain management PRN Cont Flomax & Proscar (BPH) and follow-up with your Urologist as an out-patient Cleared for discharge home today from a Neurosurgery standpoint as he has met all out metrics. Above plan discussed with my attending and agrees. On behalf of Dr. Aguila, thank you for the opportunity to participate in your patient's care. Code(s): M54.5 - LOW BACK PAIN (2) HTN (hypertension) Code(s): I10 - ESSENTIAL (PRIMARY) HYPERTENSION Qualifiers: Hypertension type: essential hypertension Qualified Code(s): I10 - Essential (primary) hypertension Problem List - Problems (1) Back pain at L4-L5 level Code(s): M54.5 - LOW BACK PAIN (2) HTN (hypertension) Code(s): I10 - ESSENTIAL (PRIMARY) HYPERTENSION Qualifiers: Hypertension type: essential hypertension Qualified Code(s): I10 - Essential (primary) hypertension
[2018-03-23] MEDS: DUTASTERIDE 0.5 MG CAP (FP) PO SCH (08:09)
[2018-03-23] MEDS: TAMSULOSIN HCL 0.4 MG CAP PO SCH (08:09)
[2018-03-23] MEDS: FERROUS SO4 325 MG TABLET (FP) PO SCH (09:42)
[2018-03-23] MEDS: FOLIC ACID 1 MG TABLET (FP) PO SCH (09:42)
[2018-03-23] MEDS: LOSARTAN POTASSIUM 50 MG TABLET (FP) PO SCH (09:42)
[2018-03-23] MEDS: GABAPENTIN 300 MG CAPSULE (FP) PO SCH (09:43)
[2018-03-23] MEDS: CALCIUM 500MG/VIT-D 200 UNITS COMBO TABLET (FP) PO SCH (09:43)
[2018-03-23] MEDS: POLYETHYLENE GLYCOL 3350 119 GM BTL PO SCH (09:46)
[2018-03-23 11:21] VITALS: BP 119/61; PULSE 69; TEMP 97.8
--- NOTE | 2018-03-23 12:20 | PN ---
Progress Note (short form) - Note Progress Note: cleared for D/c by surgery Discussed with surgery and Will follow as outpt Vital Signs Temp 97.8 F 03/23/18 10:00 Pulse 69 03/23/18 10:00 Resp 20 03/23/18 10:00 BP 119/61 03/23/18 10:00 Pulse Ox 97 03/22/18 21:00 Intake & Output 03/22/18 03/23/18 03/23/18 23:59 11:59 23:59 Intake Total 350 380 Output Total 1125 1300 Balance -775 -920 Intake: Oral 350 380 Output: Urine 1125 1300 Void 1125 1300 Other: Voiding Method Urinal Urinal Bowel Movement No No Laboratory Results - last 24 hr 03/22/18 03/22/18 03/22/18 12:02 17:27 21:50 POC Glucometer 111 127 134 03/23/18 05:25 POC Glucometer 148 Problem List - Problems (1) Back pain at L4-L5 level Code(s): M54.5 - LOW BACK PAIN (2) HTN (hypertension) Code(s): I10 - ESSENTIAL (PRIMARY) HYPERTENSION Qualifiers: Hypertension type: essential hypertension Qualified Code(s): I10 - Essential (primary) hypertension (3) CVD (cardiovascular disease) Code(s): I25.10 - ATHSCL HEART DISEASE OF [place] CORONARY ARTERY W/O ANG PCTRS (4) Asthma Code(s): J45.909 - UNSPECIFIED ASTHMA, UNCOMPLICATED Qualifiers: Asthma severity: mild Asthma persistence: intermittent (5) Benign localized hyperplasia of prostate with urinary obstruction Code(s): N40.1 - BENIGN PROSTATIC HYPERPLASIA WITH LOWER URINARY TRACT SYMP; N13.8 - OTHER OBSTRUCTIVE AND REFLUX UROPATHY (6) Retention of urine Code(s): R33.9 - RETENTION OF URINE, UNSPECIFIED
== END 2018-03-23 11:16 | disposition home or self-care (01) | DRG 460 ==
LOC: JSAMEDAYSX 05:28 → J8W 15:27
PROVIDERS: ADMIT Neurological Surgery; ATTEND Internal Medicine
PROC: 0SG00AJ Fusion of Lumbar Vertebral Joint with Interbody Fusion Device, Posterior Approach, Anterior Column, Open Approach (ICD-10-PCS; 2018-03-18)
PROC: 0JX70ZB Transfer Back Subcutaneous Tissue and Fascia with Skin and Subcutaneous Tissue, Open Approach (ICD-10-PCS; 2018-03-18)
PROC: 0QB00ZZ Excision of Lumbar Vertebra, Open Approach (ICD-10-PCS; principal; 2018-03-18 08:00)
DX: M51.06 Intervertebral disc disorders with myelopathy, lumbar region (principal); N13.8 Other obstructive and reflux uropathy; M48.061 Spinal stenosis, lumbar region without neurogenic claudication; M43.16 Spondylolisthesis, lumbar region; I10 Essential (primary) hypertension; E78.5 Hyperlipidemia, unspecified; E11.42 Type 2 diabetes mellitus with diabetic polyneuropathy; J45.909 Unspecified asthma, uncomplicated; N28.1 Cyst of kidney, acquired; E66.9 Obesity, unspecified; Z68.36 Body mass index [BMI] 36.0-36.9, adult; R33.9 Retention of urine, unspecified; K59.00 Constipation, unspecified; N40.1 Benign prostatic hyperplasia with lower urinary tract symptoms; Z86.73 Personal history of transient ischemic attack (TIA), and cerebral infarction without residual deficits; Z87.891 Personal history of nicotine dependence
CPT/HCPCS: 36415; 72131-TC; 76000-TC-FY; 80048; 80053; 82962; 85025; 85027; 86850; 86900; 86901; 94010; 94760; 97116-GP; 97161-GP; J1644

== ENCOUNTER 2020-06-12 06:43 | Day surgery (SDC) | payer OTHER, BC ==
[2020-06-06 09:52] VITALS: BMI 37.4
[2020-06-12] MEDS ORDERED: ceFAZolin SODIUM 1 GM VIAL ONE ×2 (07:16→09:05)
[2020-06-12] MEDS ORDERED: CELECOXIB 200 MG CAPSULE PO ONE (07:16)
[2020-06-12] MEDS ORDERED: CEFAZOLIN 2 GM in DEXTROSE 5%-WATER - 50 ML IVPB ONE (07:16)
[2020-06-12] MEDS ORDERED: TRANEXAMIC ACID 1000 MG/10 ML VIAL IVPUSH ONE (07:16)
[2020-06-12] MEDS ORDERED: THROMBIN (RECOMBINANT) 5,000 UNIT VIAL TP ONE (07:16)
[2020-06-12] MEDS ORDERED: MAG HYDROX/AL HYDROX/SIMETH 30 ML UNIT-DOSE CUP PO PRN (08:03)
[2020-06-12] MEDS ORDERED: ONDANSETRON 4 MG/2 ML VIAL IVPUSH PRN ×2 (08:03→10:53)
[2020-06-12] MEDS ORDERED: ROPIVACAINE HCL 0.5% 30ML VIAL ONE (08:13)
[2020-06-12] MEDS ORDERED: MIDAZOLAM HCL 2 MG/2 ML SINGLE DOSE VIAL ONE (08:13)
[2020-06-12] MEDS ORDERED: LACTATED RINGERS SOLUTION 1,000 ML IV SCH (08:15)
[2020-06-12] MEDS ORDERED: PROPOFOL 20 ML ONE ×3 (08:34)
[2020-06-12] MEDS ORDERED: SUCCINYLCHOLINE CHLORIDE 200 MG/10 ML SYRINGE ONE (08:34)
[2020-06-12] MEDS ORDERED: ONDANSETRON 4 MG/2 ML VIAL ONE ×2 (09:05→11:39)
[2020-06-12] MEDS ORDERED: TRANEXAMIC ACID 1000 MG/10 ML VIAL ONE (09:05)
[2020-06-12] MEDS ORDERED: DEXAMETHASONE SOD PHOSPHATE 4 MG/1 ML VIAL ONE (09:05)
[2020-06-12] MEDS ORDERED: EPHEDRINE SULFATE/0.9% NACL/PF 50 MG/10 ML SYRINGE NR ONE (09:07)
[2020-06-12] MEDS ORDERED: BUPIVICAINE 0.25%/MORPH PF/KETOROLAC - 51ML DISP.SYRINGE IA ONE ×3 (09:21→10:25)
[2020-06-12] MEDS ORDERED: SIMVASTATIN 80 MG PO SCH (10:00)
[2020-06-12] MEDS ORDERED: PATIENT'S OWN MEDICATION (NON-FORMULARY) (Telmisartan [Telmisartan] 80 MG Tablet) PO SCH (10:00)
[2020-06-12] MEDS ORDERED: oxyCODONE HCL 5 MG TABLET PO PRN (10:53)
[2020-06-12] MEDS ORDERED: ACETAMINOPHEN 325 MG TABLET (FP) ONE (11:00)
[2020-06-12] MEDS ORDERED: oxyCODONE HCL 5 MG TABLET ONE (11:39)
[2020-06-12] MEDS: ACETAMINOPHEN 325 MG TABLET (FP) PO SCH ×2 (11:45→17:58)
[2020-06-12] MEDS: oxyCODONE HCL 5 MG TABLET PO PRN ×2 (11:45→22:05)
[2020-06-12] MEDS: SENNOSIDES/DOCUSATE COMBO (SENNA PLUS) TABLET (UD) PO SCH ×2 (12:06→21:20)
[2020-06-12] MEDS: PANTOPRAZOLE 40 MG TABLET PO SCH (12:23)
[2020-06-12] MEDS: CEFAZOLIN 2 GM/D5W 2 GM/50 ML ML IVPB SCH (17:58)
[2020-06-12] MEDS: GABAPENTIN 300 MG CAPSULE PO SCH (21:20)
[2020-06-12] MEDS ORDERED: PT OWN MED DRAWER 7, Y5N ONE (21:35)
[2020-06-12] MEDS ORDERED: TAMSULOSIN HCL 0.4 MG CAP PO SCH (22:00)
[2020-06-12] MEDS ORDERED: DUTASTERIDE 0.5 MG CAP (FP) PO SCH (22:00)
[2020-06-12] MEDS ORDERED: PATIENT'S OWN MEDICATION (NON-FORMULARY) (Dutasteride/Tamsulosin Hcl [Jalyn 0.5-0.4 Mg Cap PO SCH (22:00)
[2020-06-12] MEDS ORDERED: NEBIVOLOL 5 MG TABLET (FP) PO SCH (22:00)
[2020-06-13] MEDS: ACETAMINOPHEN 325 MG TABLET (FP) PO SCH ×3 (00:35→12:17)
[2020-06-13] MEDS: CEFAZOLIN 2 GM/D5W 2 GM/50 ML ML IVPB SCH (01:52)
[2020-06-13] MEDS ORDERED: CLOPIDOGREL BISULFATE 75 MG TABLET (FP) PO SCH (10:00)
[2020-06-13] MEDS ORDERED: amLODIPine BESYLATE 5 MG TABLET (FP) PO SCH (10:00)
[2020-06-13] MEDS ORDERED: ASPIRIN COATED 81 MG TABLET.EC PO SCH (10:00)
[2020-06-13] MEDS ORDERED: FLUTICASONE/UMECLIDIN/VILANTER (TRELEGY ELLIPTA 100-62.5-25) INAHLER IH SCH ×2 (10:00)
[2020-06-13] MEDS ORDERED: LOSARTAN POTASSIUM 50 MG TABLET PO SCH (10:00)
[2020-06-13] MEDS ORDERED: MULTIVITAMINS (DAILY MVI) TABLET (FP) PO SCH (10:00)
[2020-06-13] MEDS: PANTOPRAZOLE 40 MG TABLET PO SCH (10:13)
[2020-06-13] MEDS: GABAPENTIN 300 MG CAPSULE PO SCH (10:13)
[2020-06-13 10:19] VITALS: BP 124/46; PULSE 80; TEMP 98.3
[2020-06-13] MEDS: SENNOSIDES/DOCUSATE COMBO (SENNA PLUS) TABLET (UD) PO SCH (10:20)
[2020-06-13] MEDS ORDERED: ATORVASTATIN CA 40 MG TABLET (FP) PO SCH (22:00)
== END 2020-06-13 12:20 | disposition home health service (06) ==
LOC: FASUSAT 06:43 → FM/S 13:30 → FASUSAT 06-13 12:20
PROVIDERS: ATTEND Orthopaedic Surgery
PROC: 8E0YXBZ Computer Assisted Procedure of Lower Extremity (ICD-10-PCS; 2020-06-12)
PROC: 0SRC0L9 Replacement of Right Knee Joint with Medial Unicondylar Synthetic Substitute, Cemented, Open Approach (ICD-10-PCS; principal; 2020-06-12 09:14)
DX: M17.11 Unilateral primary osteoarthritis, right knee (principal); I10 Essential (primary) hypertension; J44.9 Chronic obstructive pulmonary disease, unspecified; E66.9 Obesity, unspecified
CPT/HCPCS: 20985; 27446; C1776; 73560-TC-RT-FY; 94760; 97010-GP; 97116-GP; 97162-GP